=== PATIENT | male | born 1960 | race Caucasian/White ===

== ENCOUNTER 2020-07-10 07:47 | Outpatient (CLI) | payer BC ==
--- NOTE | 2020-07-10 10:22 | ULT ---
ULTRASOUND ABDOMEN LIMITED: (RIGHT UPPER QUADRANT) HISTORY: A 60-year-old male with epigastric pain. FINDINGS: The gallbladder has normal wall thickness and has no evidence of gallstones or sludge. The hepatic e chogenicity is normal. The right kidney has normal echogenicity and has no hydronephrosis. Incident ally, there is a tiny 0.8 cm right renal mid pole cortical cyst. The pancreas is obscured by shadowi ng from bowel gas. There is no biliary dilation. The common duct caliber is 4 mm. IMPRESSION: 1) No pathology identified. 2) Pancreas not visualized. jn [] POS: OFF
[2020-07-10 10:47] LABS: Hemoglobin 15.9 g/dL (14.0-18.0); Mean Corpuscular Hemoglobin 31.5 pg (27.0-31.0); Mean Corpuscular Volume 95.7 fL (78.0-98.0); Mean Platelet Volume 8.3 fL (7.4-10.4); Platelet Count 188 thou/uL (130-400); RBC Distribution Width 11.8 % (11.5-14.5); Red Blood Cell (RBC) Count 5.05 mill/uL (4.70-6.10); White Blood Cell (WBC) Count 4.1 thou/uL (4.8-10.8)
[2020-07-10 10:51] LABS: ALT (SGPT) 18 U/L (8-55); AST (SGOT) 20 U/L (5-34); Albumin 4.3 g/dL (3.5-5.0); Alkaline Phosphatase 111 U/L (40-110); Bilirubin, Direct 0.3 mg/dL (0.1-0.3); Bilirubin, Total 0.9 mg/dL (0.2-1.2); Lipase 40 U/L (8-78)
== END 2020-07-10 07:48 | disposition home or self-care (01) ==
LOC: SCSULT 07:47
PROVIDERS: ATTEND Internal Medicine Gastroenterology
DX: R10.13 Epigastric pain (principal)
CPT/HCPCS: 36415; 76705; 80076; 83690; 85027